=== PATIENT | male | born 2000 | race African-American/Black ===

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

== ENCOUNTER 2020-03-04 10:00 | Day surgery (SDC) | payer OTHER ==
[~2020-03-04 10:00] MED LIST changes: +LACTATED RINGERS 1000 ML IV PRN; +LIDOCAINE 0.5% INJ-PF (5 MG/ML) 50 ML SDV SUBCUT PRN; -PROPOFOL INJ 200 MG/20 ML VIAL IV ONE
[2020-03-04] MEDS ORDERED: MIDAZOLAM 2 MG/2 ML INJ ONE (11:46)
[2020-03-04] MEDS ORDERED: FENTANYL CITRATE INJ/PF 100 MCG/2 ML AMPUL ONE (11:46)
[2020-03-04] MEDS ORDERED: PROPOFOL INJ 200 MG/20 ML VIAL IV ONE (11:47)
[2020-03-04] MEDS ORDERED: CEFAZOLIN SODIUM 2 GM in DEXTROSE 5%-WATER 100 ML IV PRN (12:00)
[2020-03-04] MEDS ORDERED: BUPIVACAINE HCL 0.25 % INJ/PF (2.5 MG/1 ML) 30 ML VIAL ONE (12:10)
[2020-03-04] MEDS ORDERED: LIDOCAINE 1% INJ-PF (10 MG/ML) 30 ML SDV ONE (12:10)
[2020-03-04] MEDS ORDERED: PROMETHAZINE HCL INJ 25 MG/1 ML VIAL IV PRN (12:36)
[2020-03-04] MEDS ORDERED: DIPHENHYDRAMINE HCL 50 MG/ML VIAL IV PRN (12:36)
[2020-03-04] MEDS ORDERED: MORPHINE SULFATE 10 MG/ML INJ IV PRN (12:36)
[2020-03-04] MEDS ORDERED: FENTANYL CITRATE INJ/PF 100 MCG/2 ML AMPUL IV PRN ×3 (12:36)
[2020-03-04] MEDS ORDERED: MEPERIDINE HCL/PF INJ 25 MG/1 ML DISP.SYRIN IV PRN (12:36)
[2020-03-04] MEDS ORDERED: ONDANSETRON HCL INJ/PF 4 MG/2 ML SDV IV PRN (12:36)
--- NOTE | 2020-03-04 13:04 | Operative Report ---
Nonrecallable Operative Report DATE OF SURGERY: 03/04/20 PREOPERATIVE DIAGNOSIS: Suture granuloma the right lower extremity POSTOPERATIVE DIAGNOSIS: Same as above OPERATION: Excision of suture granuloma of the right lower extremity SURGEON: MAURILIO PUGH 1ST ORGAN ASSEMBLER: CARLA NEAL ANESTHESIA: LMAC TISSUE REMOVED OR ALTERED: Suture granuloma the right lower extremity COMPLICATIONS: None apparent ESTIMATED BLOOD LOSS: Minimal PROCEDURE: Drain/implants: None. Procedure detail: After informed consent was obtained, the patient was brought to the operating room and laid in the supine position. The area of the right lower extremity was prepped and draped in normal sterile fashion. The area of the suture granuloma was obvious. It was excised using sharp dissection with a 15 blade scalpel. It was excised all the way down to the fascia. The offending suture was removed in its entirety, along with a small amount of granulation tissue. Once it was excised, the fascia of the right calf was examined. There was a small defect, that would require repair. The small defect in the fascia was closed using 0 Vicryl suture in [id number] fashion. The knot was buried underneath the fascia. Next, the overlying skin was closed using 3-0 nylon suture in simple interrupted fashion. Dressing was placed, and the procedure was concluded. All sponge, instrument, and needle counts were correct x2. Condition: Stable. Carla Neal PA-C was scrubbed and present the entirety of the procedure. She assisted with all portions of the procedure including opening of the skin, removal of the suture granuloma, closure of the fascia, and closure of the skin.
--- NOTE | 2020-03-04 13:13 | Discharge Summary ---
Discharge Summary (SDC) - Discharge Final Diagnosis: suture granuloma of the right lower extremity Date of Surgery: 03/04/20 Discharge Date: 03/04/20 Condition: Stable Treatment or Instructions: d/c home. diet as tolerated. Activity: nonstrenuous. F/u with [facility] in 10-14 days. ibuprofen 800mg PO TID. Prescriptions: Ibuprofen [Motrin 800 mg Tablet] 800 mg PO MEALS #28 tablet Referrals: SHOAIB HIGGINS PA [Primary Care Provider] - Discharge Diet: As Tolerated Respiratory Treatments at Home: Deep Breathing/Coughing Discharge Activity: Balance Activity w/Rest Home Care Assistance: None Needed Report the Following to Your Physician Immediately: Shortness of Breath, Nausea, Vomiting, Increase in Pain, Fever over 101 Degrees, Unusual Bleeding
[2020-03-04 13:56] VITALS: BP 115/57
== END 2020-03-04 14:15 | disposition home or self-care (01) ==
LOC: OROUT 10:00
PROVIDERS: ATTEND Surgery
DX: T88.8XXA Other specified complications of surgical and medical care, not elsewhere classified, initial encounter (principal); M60.261 Foreign body granuloma of soft tissue, not elsewhere classified, right lower leg; Y83.8 Other surgical procedures as the cause of abnormal reaction of the patient, or of later complication, without mention of misadventure at the time of the procedure
CPT/HCPCS: 87635; 00400; 27618; J2250; J0690; J3010; J3490; J7060; J2704; 400